=== PATIENT | male | born 1975 | race African-American/Black ===

== ENCOUNTER 2024-02-11 21:43 | Emergency (ER) | payer MEDICAID ==
[~2024-02-11] VITALS: Ht 170.2 cm; Wt 73.0 kg
[2024-02-11 21:56] VITALS: BP 140/89; PULSE 79; RESP 20; TEMP 98.2; O2SAT 99
== END 2024-02-12 02:00 | disposition left against medical advice (07) ==
LOC: ER 21:43
DX: R07.89 Other chest pain (principal); I10 Essential (primary) hypertension
CPT/HCPCS: 71045; 93005; 99283